=== PATIENT | female | born 1960 | race Two or more races ===

== ENCOUNTER 2024-12-29 15:15 | Emergency (ER) | payer BC, SELFPAY ==
[2024-12-29] VITALS (7 sets, daily range): BP systolic 158–161; BP diastolic 80–90; PULSE 67–94; RESP 16–22; TEMP 36.3–36.8; O2SAT 95–100; BMI 28.3
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
--- NOTE | 2024-12-29 15:24 | EKG_ITS ---
[facility] Test Date: 2024-12-29 Pat Name: CHAPO GAMEZ Department: Room: - Gender: Female It Applications Analyst: : 1960 Requested By: Napoleon Hernandez Order Number: [id number] Reading MD: Napoleon Hernandez Measurements Intervals [place] Rate: 82 P: 0 KS: 143 QRS: 9 QRSD: 90 T: 13 QT: 360 QTc: 423 Interpretive Statements SINUS RHYTHM No previous ECG available for comparison /[id number]/[email or web address]/[id number].pdf
--- NOTE | 2024-12-29 15:34 | XR_ITS ---
Examination: AP chest single view Technique: Sitting AP portable chest single view Date and time: December 29, 2024 1542 hrs. Indications: Shortness of breath today. Findings: Normal heart size. Lungs are clear. Moderate osteopenia. Impression: No active disease
[2024-12-29] MEDS: DEXAMETHASONE SOD PHOS INJ 10 MG/ML VIAL 6 MG PO (15:56)
[2024-12-29] MEDS: SODIUM CHLORIDE 0.9% 1000 ML 1,000 ML 999 ML IV (15:56)
[2024-12-29 16:29] LABS: Base Excess 1 (-3-3); HCO3 26 mEq/L (20-26); Inspired Oxygen, FIO2 21 %; O2 Saturation 98 % (91-98); PCO2 42 mmHg (32.0-48.0); PO2 91 mmHg (83-108); pH, Arterial 7.41 (7.35-7.45)
[2024-12-29] MEDS: ALBUTEROL RT 2.5 MG/0.5 ML NEBU 5 MG INH (16:30)
[2024-12-29 16:31] LABS: Allen Test Not Performed; Puncture Site Right Radial
[2024-12-29] MEDS: BUDESONIDE RT 0.5 MG/2 ML NEBU INH (16:31)
[2024-12-29 16:37] LABS: Basophils % (Auto) 0 % (0-2.5); Eosinophils # (Auto) 0.1 Thou/mm3 (0.0-0.5); Eosinophils % (Auto) 1 % (0-10); Hematocrit 35.7 % (36.0-46.0); Hemoglobin 12.4 g/dL (12.0-16.0); Immature Granulocytes % (Auto) 1 % (0-0); Immature Granulocytes Auto 0.04 Thou/mm3 (0.00-0.00); Lymphocytes # (Auto) 2.1 Thou/mm3 (1.0-4.8); Lymphocytes % (Auto) 26 % (10-50); Mean Corpuscular HGB Conc 34.7 g/dl (31.0-37.0); Mean Corpuscular Hemoglobin 29.7 pg (25.0-35.0); Mean Corpuscular Volume 85 fL (80-100); Monocytes # (Auto) 0.5 Thou/mm3 (0.0-0.8); Monocytes % (Auto) 6 % (0-12); Neutrophils # (Auto) 5.4 Thou/mm3 (1.8-7.7); Neutrophils % (Auto) 66 % (37-80); Nucleated Red Blood Cell % 0 /100 WBC (0); Platelet Count 200 Thou/mm3 (140-440); RDW Standard Deviation 42.4 fL (36.4-46.3); Red Blood Count 4.18 Miln/mm3 (4.00-5.20); White Blood Count 8.1 Thou/mm3 (3.6-11.0)
[2024-12-29 16:55] LABS: Alanine Aminotransferase 19 U/L (10-49); Albumin, Serum 4.2 gm/dL (3.4-4.8); Albumin/Globulin Ratio 1.6 (1.2-2.2); Alkaline Phosphatase 92 U/L (46-116); Anion Gap 9 (7-16); Aspartate Amino Transferase 20 U/L (0-34); BUN/Creatinine Ratio 17 Ratio (12-20); Bilirubin,Total 0.3 mg/dL (0.3-1.2); Blood Urea Nitrogen 15 mg/dL (9-23); Calcium 8.6 mg/dL (8.3-10.6); Calcium (Corrected) 8.6 mg/dL (8.5-10.1); Carbon Dioxide 23.7 mMol/L (20.0-31.0); Chloride 110 mMol/L (98-107); Creatinine (Component) 0.9 mg/dL (0.6-1.3); Estimated Creatinine Clearance 60.9 mL/min (>60); Globulin 2.7 gm/dL (2.3-3.5); Glucose 155 mg/dL (74-106); Osmolality,Calculated 288 (275-295); Potassium 3.4 mMol/L (3.4-5.1); Sodium 143 mMol/L (136-145); Total Protein 6.9 gm/dL (5.7-8.2); Troponin I < 0.020 ng/mL (0.0-0.045); eGFR > 60 See Note
== END 2024-12-29 17:24 | disposition home or self-care (01) ==
PROVIDERS: Emergency Provider Family Medicine
DX: T59.811A Toxic effect of smoke, accidental (unintentional), initial encounter (principal); R07.89 Other chest pain
CPT/HCPCS: 36415; 36600; 71045; 80053; 81001; 82803; 84484; 85025; 93005; 94640; 96360; 99284; J1100; J7030